=== PATIENT | female | born 1960 | race Caucasian/White ===

== ENCOUNTER 2017-07-09 17:00 | Observation (INO) | payer OTHER ==
[~2017-07-09] VITALS: Ht 162.6 cm; Wt 88.0 kg
--- NOTE | ~2017-07-09 | HP ---
PAT[facility]: [facility] AGE: 56 Y [address] ROOM: [place] [id number] [place] [facility] [place]: 07/09/2017 History & Physical DISCHARGE DATE: FAMILY PHYSICIAN: Isaac Reed MD ATTENDING PHYSICIAN: Jacob Ocampo DATE OF SERVICE: CHIEF COMPLAINT: Right renal colic. HISTORY OF PRESENT ILLNESS: This is a 56-year-old female with a history of recurrent kidney stones who presents here today with right flank pain that has been progressively worsening since three days ago. The patient is known to have recurrent problems with kidney stones requiring multiple lithotripsies. Last one done in September 2016. The patient describes the pain as colicky with radiation to her groin. Also reports associated nausea with this. The patient otherwise denies any dysuria or frequency symptoms. Denies any other associated symptoms including diarrhea, constipation, fever, or chills. Denies any chest pain, shortness of breath, dizziness, or lightheadedness as well. PAST MEDICAL HISTORY: 1. Type 2 diabetes. 2. Hypertension. 3. Recurrent kidney stones. FAMILY HISTORY: The patient has a history of recurrent kidney stones in brothers, sisters, and parents. SOCIAL HISTORY: Denies any history of smoking, alcohol, or drug use. REVIEW OF SYSTEMS: All of the systems have been reviewed and were all negative except as described in the HPI. PHYSICAL EXAMINATION: VITAL SIGNS: Reviewed and stable. GENERAL: Awake, alert, and oriented x3, in no acute distress. CHEST: Clear to auscultation bilaterally. HEART: S1 and S2. Regular rate and rhythm. ABDOMEN: Soft. Mild tenderness to the left flank and CVA tenderness. NEUROLOGIC: Grossly nonfocal. PAT[facility]'S NAME: [facility] AGE: 56 Y [address] ROOM: [place] [id number] [place] [facility] [place]: 07/09/2017 History & Physical DISCHARGE DATE: FAMILY PHYSICIAN: Isaac Reed MD ATTENDING PHYSICIAN: Jacob Ocampo MUSCULOSKELETAL: No joint tenderness, effusion, or erythema noted. SKIN: Without rashes or lesions. HEENT: Moist mucous membranes. No scleral icterus or conjunctival pallor noted. ASSESSMENT AND PLAN: 1. Right obstructing kidney stone with right hydronephrosis. The patient has recurrent history of this. The patient to be promptly seen by urologist, Dr. Ocampo. 2. Right renal colic. We will give IV fluids and pain management while awaiting Urology evaluation. 3. Type 2 diabetes. The patient is on metformin at home. We will use sliding scale while inpatient. 4. Essential hypertension. We will continue patient's home medications including hydrochlorothiazide, Norvasc, and losartan. 5. Right hydronephrosis due to nephrolithiasis that is obstructing to the right side. I have discussed with the patient the need to work up the reason for why she gets recurrent stones, and she is to bring this up with her PCP and urologist as an outpatient. 6. Hyperlipidemia. Continue her cholesterol medications. 7. Deep venous thrombosis prophylaxis. We will use SCDs and ambulate. MD DORETHA GARCIA/meghan /[id number] D: T: HISTORY & PHYSICAL
--- NOTE | ~2017-07-09 | OR ---
PATIENT'S NAME: ILDEFONSO DENNY [facility] AGE: 56 Y [address] 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 POSTOPERATIVE DIAGNOSIS: Right ureter stone. PROCEDURE PERFORMED: Cystoscopy, balloon dilatation, right ureteroscopy with stone extractions and stent placement. ANESTHESIA: General. COMPLICATIONS: None. INDICATION FOR PROCEDURE: The patient is a 56-year-old female with a large 8 mm distal right ureter stone with high-grade obstruction. Also, multiple smaller distal right ureter stones are present. DETAILS OF PROCEDURE: After informed consent was obtained, the patient was taken to the operating room. A general anesthetic was applied, and she was placed in a dorsal lithotomy position. The groin area was prepped and draped in a normal sterile fashion. Cystoscope was introduced into the urethra and bladder without difficulty. The right ureteral orifice was cannulated with a guidewire up into the renal pelvis. Next, a balloon dilator was introduced and the distal ureter was dilated to 14 atmospheres for 3.5 minutes. The balloon was then deflated and removed. Ureteroscope was introduced into the distal ureter where the large 8 mm stone was identified, engaged with a tripod basket and removed. I then went back up into the ureter and located 3 smaller stones, which were also removed with the basket. Following this, the cystoscope was back-loaded over the guidewire and a 6-Croatian multi-length ureteral stent was passed over the guidewire up into the renal pelvis. Radiograph imaging shows good positioning of the stent. The patient tolerated the procedure well and was transferred to the recovery room in good condition. FRANNIE OCAMPO MD PATIENT'S NAME: ILDEFONSO DENNY [facility] AGE: 56 Y [address] ROOM: [place] [address] [place] [facility] [place]: 07/09/2017 OR/Procedure Report DISCHARGE DATE: FAMILY PHYSICIAN: Isaac Reed MD ATTENDING PHYSICIAN: Frannie Ocampo/meghan /[id number] CC: Isaac Reed MD d: 07/10/17 0920 t: 07/21/17 1158, OPERATIVE SUMMARY
--- NOTE | ~2017-07-09 | CON ---
PATIENT'S NAME: ILDEFONSO DENNY [facility] AGE: 56 Y [address] ROOM: [place] [address] LOCATION: [facility] [place] ADMIT DATE: 07/09/2017 Consultation DISCHARGE DATE: 07/10/2017 FAMILY PHYSICIAN: Isaac Reed MD ATTENDING PHYSICIAN: Jacob Ocampo DATE OF CONSULTATION: 07/09/2017 HISTORY OF PRESENT ILLNESS: The patient is a 56-year-old female who was experiencing right flank pain since mid May. She reports increased pain during this past week. Abdominopelvic CT scan today reveals an 8 mm distal right ureter stone with high-grade obstruction with hydroureter and hydronephrosis. The patient reports a long history of nephrolithiasis, has had multiple procedures and stents secondary to this. I discussed right ureteroscopy with laser lithotripsy and stent placement with the patient, which she agrees to. PAST MEDICAL HISTORY: Again is significant for nephrolithiasis, diabetes, and hypertension. PAST SURGICAL HISTORY: Cholecystectomy and multiple urological procedures for stone including ESWL and stent placements. MEDICATIONS: 1. Nexium 40 mg daily. 2. Metformin 500 mg 3 times a day. 3. Zantac 150 mg twice daily. 4. Norvasc 5 mg daily. 5. Hydrochlorothiazide 25 mg daily. 6. Potassium 10 mEq daily. 7. Cozaar 50 mg daily. 8. Lotrisone cream p.r.n., topical. 9. WelChol 625 mg 2 tablets twice daily. 10. Neurontin 300 mg at bedtime. 11. Diflucan 250 mg p.o. p.r.n. 12. Singulair 10 mg p.o. q.p.m. 13. Levaquin 750 mg daily. 14. Aspirin 81 mg daily. 15. Flomax 0.4 mg daily. 16. Nasacort spray, 2 sprays at bedtime. 17. Ibuprofen 400 mg p.r.n. 18. Tylenol p.r.n. 19. Mucinex 1200 mg twice daily. 20. Simethicone 180 mg p.r.n. PATIENT'S NAME: ILDEFONSO DENNY [facility] AGE: 56 Y [address] ROOM: [place] [address] LOCATION: [facility] [place] ADMIT DATE: 07/09/2017 Consultation DISCHARGE DATE: 07/10/2017 FAMILY PHYSICIAN: Isaac Reed MD ATTENDING PHYSICIAN: Jacob Ocampo 21. Librax 2.5 capsule daily. 22. Geri 180 mg at bedtime. ALLERGIES: CODEINE, KEFLEX, SULFA, JANUVIA, AND BREO ELLIPTA. SOCIAL HISTORY: The patient is a nonsmoker. No history of alcohol abuse. REVIEW OF SYSTEMS: Significant for hypertension and abdominal discomfort. PHYSICAL EXAMINATION: GENERAL: This is a 56-year-old female in no acute distress. LUNGS: Clear bilaterally. CARDIAC: Regular rhythm and rate. ABDOMEN: Soft with right lower flank tenderness with deep palpation. NEURO: Grossly intact. SKIN: Within normal limits. MUSCULOSKELETAL: Full range of motion with normal muscle tone. IMPRESSION: An 8 mm distal right ureter stone with high-grade obstruction. PLAN: We will schedule the patient for right ureteroscopy, laser lithotripsy, and stent placement tomorrow. MD YOLETTE LORENZ/modl /[id number] d: 07/09/17 2244 t: 07/21/17 1200, CONSULTATION REPORT
[2017-07-09] MEDS ORDERED: NEXIUM40 MG PO (18:21)
[2017-07-09] MEDS ORDERED: ZANTAC (NON-FO150 MG PO (18:23)
[2017-07-09] MEDS ORDERED: GLUCOPHAGE500 MG PO (18:23)
[2017-07-09] MEDS ORDERED: NORVASC5 MG PO (18:23)
[2017-07-09] MEDS ORDERED: HYDRODIURIL25 MG PO (18:24)
[2017-07-09] MEDS ORDERED: KLOR-CON 1010 MEQ PO (18:25)
[2017-07-09] MEDS ORDERED: COZAAR50 MG PO (18:25)
[2017-07-09] MEDS ORDERED: LOTRISONE CREAM15 GM TOP (18:26)
[2017-07-09] MEDS ORDERED: LIBRIUM5 MG PO (18:27)
[2017-07-09] MEDS ORDERED: WELCHOL 625MG625 MG PO (18:29)
[2017-07-09] MEDS ORDERED: NEURONTIN300 MG PO (18:29)
[2017-07-09] MEDS ORDERED: SINGULAIR10 MG PO (18:34)
[2017-07-09] MEDS ORDERED: DIFLUCAN50 MG PO (18:34)
[2017-07-09] MEDS ORDERED: ASPIRIN (CHILDR81 MG PO ×2 (18:37→18:45)
[2017-07-09] MEDS ORDERED: MUCINEX DM ER1 EACH PO (18:38)
[2017-07-09] MEDS ORDERED: FLOMAX0.4 MG PO (18:45)
[2017-07-09] MEDS ORDERED: ESTROVEN ENERG1 EACH PO (18:46)
[2017-07-09] MEDS ORDERED: NASACORT16.9 ML NOSE (18:48)
[2017-07-09] MEDS ORDERED: IBUPROFEN400 MG PO (18:49)
[2017-07-09] MEDS ORDERED: MUCINEX600 MG PO (18:51)
[2017-07-09] MEDS ORDERED: TYLENOL EXTRA500 MG PO (18:51)
[2017-07-09] MEDS ORDERED: ANTI-GAS180 MG PO (18:52)
[2017-07-09] MEDS ORDERED: DPS FOR LIBRAX1 CAP PO (18:55)
[2017-07-09] MEDS ORDERED: ALLEGRA180 MG PO (19:02)
--- NOTE | 2017-07-09 19:15 | NUR ---
PATIENT ADMITTED FROM [facility] FOR [facility]. PATIENT IS ALERT AND ORIENTED X3. HEART RATE SLIGHTLY TACHYCARDIC OTHER VSS. AFEBRILE. C/O BACK PAIN. HISTORY OF BILE SALTS MALABSOPRTION, FREQUENT KIDNEY STONES, PE. PATIENT IS PLEASANT AND COOPERATIVE WITH CARES. AWAIING TO SEE IF HAVING SURGERY TONIGHT OR 07/10 FOR KIDNEY STONE REMOVAL.
--- NOTE | 2017-07-10 04:36 | NUR ---
Pt. admitted prior to shift change for kidney stones. Surgery in AM. Clear liquid diet until MN. Has been NPO since MN. 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 IV to R) arm with fluids at 125ml. Alert and oriented. RA. VSS. Tylenol given at 2130 with some relief. Toradol given at 0100 with relief. Accuchecks every 6 hours. 2 units of insulin given on a mild sliding scale. Pleasant and cooperative with cares. Permits signed.
[2017-07-10 04:38] LABS: ANION GAP 9.7 (10.0-19.0); BLOOD UREA NITROGEN 11 mg/dL (6-24); CALCIUM 8.4 mg/dL (8.5-10.5); CHLORIDE 109 mMol/L (96-110); CO2 25 mMol/L (22-32); CREATININE 0.6 mg/dL (0.5-1.1); MAGNESIUM 1.7 mg/dL (1.8-2.6); PHOSPHORUS 3.1 mg/dL (2.5-4.9); POTASSIUM 3.7 mMol/L (3.7-5.1); SODIUM 140 mMol/L (135-145)
[2017-07-10] MEDS ORDERED: LEVAQUIN500 MG PO (12:30)
[2017-07-10] MEDS ORDERED: NORCO 5-325 TA1 EACH PO (12:36)
[2017-07-10] MEDS ORDERED: LEVAQUIN750 MG PO (13:50)
--- NOTE | 2017-07-10 14:30 | NUR ---
Significant Event: Patient down for surgery at 0712 and back to room from PACU at 0935. Vitals stable, patient on room air. Patient received 1 tab of norco at 0915 in recovery and nurse gave patient 1 tab at 1333--both with relief noted. Able to tolerate an oral diet. Ambulated in the adame with [employer], and has been able to go to the bathroom times 3. Patient requesting the pneumonia vaccine so this was administered per standing order prior to patient's discharge. Reviewed dismissal orders with patient and . Both verbalized understanding and patient signed dismissal paperwork. Patient taken in a wheelchair by [employer] to the front doors for dismissal-- going to drive patient home.
== END 2017-07-10 14:30 | disposition disaster alternative care site (69) ==
LOC: GMSU 17:08
PROVIDERS: Internal Medicine; ADMIT Urology
PROC: 0TC68ZZ Extirpation of Matter from Right Ureter, Via Natural or Artificial Opening Endoscopic (ICD-10-PCS; principal; 2017-07-10)
PROC: 0T768DZ Dilation of Right Ureter with Intraluminal Device, Via Natural or Artificial Opening Endoscopic (ICD-10-PCS; 2017-07-10)
DX: N13.2 Hydronephrosis with renal and ureteral calculous obstruction (principal); E11.9 Type 2 diabetes mellitus without complications; I10 Essential (primary) hypertension; E78.5 Hyperlipidemia, unspecified; Z90.49 Acquired absence of other specified parts of digestive tract; Z79.82 Long term (current) use of aspirin; Z79.899 Other long term (current) drug therapy; Z88.1 Allergy status to other antibiotic agents; Z88.2 Allergy status to sulfonamides; Z88.5 Allergy status to narcotic agent; Z88.8 Allergy status to other drugs, medicaments and biological substances; Z23 Encounter for immunization
CPT/HCPCS: C1725; C1769; G0009; G0378; J1885; J1956; J7030